=== PATIENT | male | born 1960 | race Caucasian/White ===

== ENCOUNTER 2018-09-04 13:29 | Outpatient (REF) | payer OTHER, SELFPAY ==
[2018-09-06 11:30] LABS: Campylobacter PCR SEE COMMENTS; Salmonella PCR SEE COMMENTS; Shiga Toxin PCR SEE COMMENTS; Shigella/Enteroinvasive Ecoli SEE COMMENTS
== END 2018-09-04 13:49 ==
LOC: LBN 13:29
PROVIDERS: PCP Nurse Practitioner; Visit Provider Nurse Practitioner
DX: R19.7 Diarrhea, unspecified (principal); R14.0 Abdominal distension (gaseous)
CPT/HCPCS: 87505; 83630; 87177; 87324

== ENCOUNTER 2019-12-12 07:08 | Outpatient (CLI) | payer OTHER, SELFPAY ==
[2019-12-12 07:31] LABS: HCT 44.7 % (40.0-50.0); HGB 14.6 g/dL (13.5-17.5); Mean Corp. HGB Concentration 32.7 g/dL (32.0-36.0); Mean Corpuscular Hemoglobin 29.7 pg (27.0-33.0); Mean Corpuscular Volume 90.9 fL (80-95); Mean Platelet Volume 10.6 fL (8.0-11.0); Platelet Count 210 x1000/uL (130-400); RBC 4.92 m/cumm (4.50-6.00); RBC Distribution Width 13.6 % (11.8-14.1); White Blood Cell Count 6.32 k/cumm (4.4-10.8)
[2019-12-12 09:43] LABS: ALT 34 U/L (16-63); AST 21 U/L (15-37); Alkaline Phosphatase 71 U/L (46-116); Anion Gap 8.5 mmol/L (3-11); BUN 17 mg/dL (7-18); Bilirubin, Total 0.8 mg/dL (0.2-1.0); CO2 27.5 mmol/L (21.0-32.0); CREATININE 1.08 mg/dL (0.70-1.30); Calcium 8.6 mg/dL (8.5-10.1); Calculated LDL 111 mg/dL (<100); Chloride 107 mmol/L (98-107); Cholesterol 173 mg/dL (<200); Glucose 86 mg/dL (74-106); HDL Cholesterol 44 mg/dL (40-60); Potassium 4.4 mmol/L (3.5-5.1); Sodium 143 mmol/L (136-145); TSH (W/Ref FT4) 4.03 uIU/mL (0.36-3.74); Total Protein 6.8 g/dL (6.4-8.2); Triglyceride 93 mg/dL (<150)
[2019-12-12 10:01] LABS: FREE T4 0.96 ng/dL (0.76-1.46)
== END 2019-12-12 07:28 ==
PROVIDERS: PCP Nurse Practitioner; Visit Provider Nurse Practitioner
DX: I34.0 Nonrheumatic mitral (valve) insufficiency (principal); R79.89 Other specified abnormal findings of blood chemistry; J45.909 Unspecified asthma, uncomplicated; Z13.220 Encounter for screening for lipoid disorders
CPT/HCPCS: 36415; 80053; 80061; 85027; 84439; 84443

== ENCOUNTER 2020-08-06 06:08 | Day surgery (SDC) | payer OTHER, SELFPAY ==
[2020-08-06 06:18] VITALS: BP 112/67; PULSE 71; RESP 16; TEMP 36.7; O2SAT 96
--- NOTE | 2020-08-06 06:41 | W.COLOREPORT ---
Date of service: 08/06/20 Time of Service: : Colonoscopy Report Date of procedure: 08/06/20 Pre-op diagnosis general: Hx of colon polyps Post-op diagnosis procedure note: same Procedure: Colonoscopy Surgeon: Em Osborne Anesthesia proc note operative: other (General/ASA 2/ Luis Hsieh, LETY) Estimated blood loss (mL): 0 Pathology: none sent Complications: None Disposition: same day Indications: The patient is here for Colonoscopy pre-op. His last screening was in 2017, which was remarkable for sessile serrated adenoma. He denies a family history of colon cancer.He has not had any bowel habit changes. -Discussed colonoscopy bowel prep as well as the procedure. Discussed possible complications of the procedure to include bleeding, pain, perforation, missed small lesion/polyp, sore throat, aspiration and adverse reaction to the medications. Questions were answered to patient?s satisfaction. No guarantees were implied or given. Prep: Miralax/Dulcolax Procedure Start Time: : Procedure End Time: :54 Retraction Time: 21 minutes Findings: Mild diverticulosis Grade 1 internal hemorrhoids Procedure Description: After informed consent was obtained the patient was taken to the procedure room and placed in a left decubitous position. Monitors were applied and a time out was done. The patients name, date of , procedure, allergies to medications and metal in their body was reviewed. The patient was then sedated. Once sedated and comfortable a rectal exam was done. External exam was normal. Internal exam revealed a normal sphincter tone and no palpable masses. The prostate felt smooth. The scope was then introduced and retro-flexed. Grade 1 internal hemorrhoids were identified. The scope was then advanced to the cecum without difficulty. The ileocecal valve and appendiceal orifice were identified. The prep was good. The scope was then slowly retracted over 21 minutes back into the rectum. There were no polyps. There was mild diverticulosis of the sigmoid colon.The scope was removed and the patient was woken up and taken back to Same day surgery in stable condition. The patient tolerated the procedure well and there were no immediate complications. Follow up: The patient should follow up in 5 years unless they develop changes in bowel habits or other new gastrointestinal complaints.
[2020-08-06] MEDS: Lactated Ringers 1,000 ML 80 ML IV (06:42)
--- NOTE | 2020-08-06 06:42 | W.PM.DSUDISC ---
Discharge Plan Disposition Patient Disposition: HOME Condition: Good Discharge Details Reason For Visit: Colonoscopy Attending Provider: Em Osborne Primary Care Provider: Karen Manuel Home Meds and New Rx's Prescriptions: Continued Serevent Diskus 50 mcg/dose blister with device 2 inh Inhalation BID Qty: 3 RF: 3 valacyclovir 1 gram tablet 1,000 mg PO DAILY Qty: 90 RF: 3 beclomethasone dipropionate 80 mcg/actuation HFA aerosol breath activated 1 inh IH BID Qty: 3 RF: 3 Discharge Instructions Instructions: Diverticulosis (DC), Hemorrhoids (DC) Additional Instructions: Findings: mild diverticulosis internal hemorrhoids Follow up: 5 years Please call if you develop: fevers >101.5 Nausea or Vomiting Abdominal pain that is not transient DAY SURGERY UNIT POST ENDOSCOPY INSTRUCTIONS 1. Because there will be medication in your system for the next 24 hours, you may feel a little sleepy. Your coordination will be affected. Therefore: a. Do not drive or operate dangerous equipment for 24 hours. b. Do not drink alcohol beverages for 24 hours (not even beer). c. Plan to go home and rest for the day. 2. Generally there are no restrictions on your activity after a day or so has gone by, but you may feel a bit fatigued for a few days. 3 After you arrive home you may have a light meal and return to a normal diet as you can tolerate it without feeling sick to your stomach. 4. After surgery, you may feel pain or discomfort. This should be only transient, but if it persists please contact your doctor. 5. If there are any questions regarding the findings of your procedure, please feel free to contact your doctor. 6. If you are unable to contact your doctor with a problem, contact the hospital at [phone]. 7. Continue all your regular medications unless directed otherwise. I understand the above instructions and have no questions. Signature of Patient or Responsible Adult Escort Date/Time Name of Responsible Adult Escort Signature of Nurse Date/Time Activity:: Activity as Tolerated Diet:: As Tolerated Discharge Orders Discharge Orders: Discharge Order (Routine); Ordered 08/06/20 Ordered By: Em Osborne
[2020-08-06 08:34] VITALS: BP 106/62; PULSE 59; RESP 18; TEMP 36.6; O2SAT 97
== END 2020-08-06 08:50 | disposition home or self-care (01) ==
PROVIDERS: PCP Nurse Practitioner; Visit Provider Surgery
PROC: 0DJD8ZZ Inspection of Lower Intestinal Tract, Via Natural or Artificial Opening Endoscopic (ICD-10-PCS; CPT 45378; principal; 2020-08-06 07:30)
DX: Z12.11 Encounter for screening for malignant neoplasm of colon (principal); Z86.010 Personal history of colon polyps; K57.30 Diverticulosis of large intestine without perforation or abscess without bleeding; K64.0 First degree hemorrhoids
CPT/HCPCS: 45378; J2001

== ENCOUNTER 2020-12-03 05:11 | Outpatient (CLI) | payer OTHER, SELFPAY ==
[2020-12-03 08:32] LABS: ALT 47 U/L (16-63); AST 23 U/L (15-37); Albumin 4.1 g/dL (3.4-5.0); Alkaline Phosphatase 64 U/L (46-116); Anion Gap 5.3 mmol/L (3-11); BUN 14 mg/dL (7-18); Bilirubin, Total 0.7 mg/dL (0.2-1.0); CO2 28.7 mmol/L (21.0-32.0); CREATININE 1.24 mg/dL (0.70-1.30); Calcium 8.9 mg/dL (8.5-10.1); Calculated LDL 129 mg/dL (<100); Chloride 106 mmol/L (98-107); Cholesterol 207 mg/dL (<200); Estimated GFR 59.47 (mL/min/1.73m2); Glucose 90 mg/dL (74-106); HDL Cholesterol 66 mg/dL (40-60); Potassium 4.3 mmol/L (3.5-5.1); Sodium 140 mmol/L (136-145); TSH (W/Ref FT4) 4.55 uIU/mL (0.36-3.74); Total Protein 7.4 g/dL (6.4-8.2); Triglyceride 63 mg/dL (<150)
== END 2020-12-03 05:31 ==
PROVIDERS: PCP Nurse Practitioner; Visit Provider Nurse Practitioner
DX: Z00.00 Encounter for general adult medical examination without abnormal findings (principal); I34.0 Nonrheumatic mitral (valve) insufficiency; R79.89 Other specified abnormal findings of blood chemistry
CPT/HCPCS: 36415; 80053; 80061; 84439; 84443

== ENCOUNTER 2021-09-18 00:34 | Outpatient (CLI) | payer OTHER, SELFPAY ==
--- NOTE | 2021-09-18 07:34 | DI.US_ITS ---
APPROVED REPORT EXAM: Comprehensive 2D, Doppler, and color-flow Echocardiogram Patient Location: Out-Patient [employer] Administrator: Riri Mancilla RDCS (AE) Indications: Mitral valve regurgitation, Atrial enlargement Other Information Study Quality: Good Conclusion Normal left ventricular wall thickness and chamber size. Estimated ejection fraction is 60 to 65%. Wall motion is normal Normal right ventricular size and systolic function Both atria are normal in size Trileaflet aortic valve without stenosis or regurgitation Normal mitral valve with mild regurgitation Normal tricuspid valve with trace regurgitation. Estimated right ventricular systolic pressure is no rmal at 26 mmHg Wall motion Left Ventricle The left ventricle is normal size. The left ventricular systolic function is normal. The left ventric ular ejection fraction is within the normal range. There is normal left ventricular wall thickness. T here is normal LV segmental wall motion. There is no ventricular septal defect visualized. LVEF is 60 -65%. Right Ventricle The right ventricle is normal size. The right ventricular systolic function is normal. The RVSP is 26 .5 mmHg. Atria The left atrium size is normal. The right atrium size is normal. The interatrial septum is intact wit h no evidence for an atrial septal defect. Aortic Valve The aortic valve is normal in structure. Aortic valve is trileaflet. There is no aortic valvular sten osis. No aortic regurgitation is present. Mitral Valve The mitral valve is normal in structure. No evidence of mitral valve stenosis. Mild mitral regurgitat ion. Tricuspid Valve The tricuspid valve is normal in structure. There is no tricuspid valve stenosis. Trace tricuspid reg urgitation. Pulmonic Valve The pulmonary valve is normal in structure. There is no pulmonic valvular stenosis. Trace pulmonic re gurgitation. Great Vessels The aortic root is normal in size. The ascending aorta is normal in size. Aortic arch is normal in ca liber. IVC is normal in size and collapses >50% with inspiration. Pericardium There is no pericardial effusion. 2D Dimensions IVSD d PLAX 0.98 cm M: 0.6-1.2 LV Vol A2C d MOD 103.0 mL LVPW d PLAX 0.98 cm M: 0.6 - 1.2 LV Vol A4C d MOD 170.7 mL LVID d PLAX 4.70 cm M: 4.2 - 5.8 LA vol/ BSA A2C s A-L 20.5 mL/m2 LVDs 3.20 cm M: 2.5 - 4.0 LA vol/ BSA A4C s A-L 28.1 mL/m2 Ao Root d 3.03 cm M: 3.1 - 3.7 LA Vol/ BSA Biplane s A-L 24.4 mL/m2 RA Area A4C 16.21 cm2 LA Area A4C s MOD 20.18 cm2 RA Vol/ BSA A4C s A-L 18.0 mL/m2 LA Area A2C s MOD 16.94 cm2 Ao Asc Diam d 3.27 cm M: 2.6 - 3.4 LV EF A4C MOD 60.0 % LV EF Teichholz 58.9 % LV EF A2C MOD 60.4 % LVEF (Pham's) 60.81 % M: 52 - 72 LV EF Biplane MOD 60.8 % LV Volume 97.71 mL M: 62 - 150 SV 82.10 mL LV Volume Index 43.81 mL/m2 M: 34 - 74 SV Index 36.73 mL/m2 LV Vol Biplane MOD 135.0 mL FS 31.10 % LV Diastology E/A Ratio 1.3 MV E Vmax 0.73 (0.4-1.3 m/s) MV A Vmax 0.55 (0.4-1.3 m/s) MV E/A Ratio 1.23 Aortic Valve LVOT Area 4.01 cm2 AoV Area Vmax 3.04 cm2 LVOT Vmax 0.93 m/s AoV Area/ BSA (Vmax) 1.36 cm2/m2 LVOT Mean Vidal. 0.55 m/s KIRIT Mean Vidal. 2.88 cm2 LVOT Peak Grad 3.5 mmHg KIRIT Mean Vidal. Index 1.29 cm2/m2 LVOT Mean Grad 1.5 mmHg LVOT VTI 0.227 m LVOT Diam s 2.25 cm AoV Vmax 1.23 m/s Velocity Ratio 0.75 AoV Mean Vidal. 0.77 m/s AoV Peak Grad 6.0 mmHg LVOT SV 90.96 mL AoV Mean Grad 2.7 mmHg AoV VTI 0.255 m AoV Area VTI 3.57 cm2 AoV Area/ BSA (VTI) 1.60 cm/m2 Mitral Valve MV DT 224 (160-240 msec) MR Vmax 4.18 m/s MV PHT 65 msec MR VTI 1.451 m MV Area PHT 3.39 cm2 MR Peak Grad 69.9 mmHg MV VTI 0.303 m MR Mean Grad 48.4 mmHg MV VTI Annulus 0.292 m MV Area VTI 2.89 (4.0-6.0 cm2) Pulmonary Valve PV Vmax 0.85 (0.5-1.5 m/s) RVOT Peak Gr. 1.25 mmHg PV Peak Grad 2.9 mmHg RVOT Mean Gr. 0.65 mmHg PV Mean Grad 1.6 mmHg RVOT VTI 0.157 m PV VTI 0.209 m RVOT Vmax 0.56 m/s Tricuspid Valve TR Peak Grad 23.5 mmHg TR Vmax 2.43 m/s RA Pressure 3.00 mmHg RVSP (TR) 26.5 mmHg
== END 2021-09-18 00:54 ==
PROVIDERS: PCP Nurse Practitioner; Visit Provider Nurse Practitioner
DX: I34.0 Nonrheumatic mitral (valve) insufficiency (principal); I51.7 Cardiomegaly
CPT/HCPCS: 93306

== ENCOUNTER 2021-10-01 08:39 | Inpatient (IN) | payer OTHER, SELFPAY ==
[2021-10-01] VITALS (30 sets, daily range): BP systolic 122–160; BP diastolic 56–89; PULSE 44–76; RESP 10–20; TEMP 36.4–36.9; O2SAT 96–99
--- NOTE | 2021-10-01 08:30 | RT.EKG_ITS ---
APPROVED REPORT Exam: Resting ECG Reason for Exam: chest pain Patient Location: E HR:56 bpm ECG Measurements Heart Rate 56 AXIS [place] 200 P 54 QRSd 95 QRS 34 QT 432 T 32 QTc 416 Conclusion Sinus bradycardia...rate< 60. Sinus. No STEMI. I have reviewed and interpreted ECG and agree with software generated interpretation.
--- NOTE | 2021-10-01 08:43 | W.ED.GENAD ---
Discharge Plan Disposition Patient Disposition: [facility] INPATIENT Condition: Stable Discharge Details Clinical Impression: NSTEMI (non-ST elevated myocardial infarction) Admit Date/Time: 10/01/21 12:38 Admit Provider: Jalil Lopez Attending Provider: Jalil Lopez Primary Care Provider: Karen Manuel ED Provider: Anna Marie Gomez Discharge Data Discharge Date/Time-TO BE ENTERED AT DEPARTURE: 10/01/21 14:01 Medical Decision Making 0850 -- 60-year-old male with a history of asthma presents for intermittent chest pain with exertion over the past 5 days. Pt took 2 full aspirin at home this morning. EKG on arrival notes a rate of 56, sinus, no STEMI nondiagnostic. Blood pressure initially 160s, now 130s. Remainder vitals within normal limits. He appears comfortable and not. He initially was pain-free and then complained of mild chest pressure during my evaluation. Due to multiple episodes of pressure-like pain with exertion in association with fatigue and nausea, this is concerning for ACS. Will obtain screening labs as well as CT chest due to radiation of pain to neck. Will give nitro x3 as needed. We will also plan for admission for chest pain rule out ACS. 0930 -- Labs reviewed. White blood cell count 6. Normal coagulation studies. Troponin 0.07. Case discussed with [facility] [place] cardiology- agree history is concerning for unstable angina. There are no beds available but can list pt for acceptance tomorrow. Accepting physician Dr. Matamoros. If CT negative, recommend 300 mg Plavix, heparin bolus and drip, metoprolol 12.5 mg every 6 hours, and starting a statin. Also recommend obtaining an echo while here if possible. 1045 -- CT scan negative. Patient reassessed and he is pain-free. Will start heparin bolus/gtt and give plavix. Discussed with [facility] and they have no capacity to accept patient today. We will plan for admission here if patient remains stable with plan for transfer to [facility] [place] tomorrow. 1215 -- Repeat troponin minimally increased to 0.08. Repeat EKG unchanged. Patient remains hemodynamically stable. Case discussed with hospitalist who accepts patient for admission. Medical Records Medical records reviewed: Yes I reviewed the patient's medical records. Imaging Data Radiologic Study: Radiologist's impression: CT THORAX CTA CLINICAL HISTORY: substernal/R sided chest pain. TECHNIQUE: Imaging Protocol: Axial CT angiography was performed with multi-slice acquisition and multi-planar and/or 3D reconstructions. CONTRAST MATERIAL: Intravenous: Omnipaque 350 Contrast volume:structured data in ml COMPARISON: No exams were available for comparison FINDINGS: CT angiography of the chest was performed with intravenous infusion of 100 cc of Omnipaque 350. The lungs are clear. No pleural effusion. Tracheobronchial tree appears intact. No evidence of pulmonary embolic disease. Thoracic aorta is of normal diameter, no thoracic aortic aneurysm or dissection, major branch vessels appear intact. No mediastinal or hilar adenopathy. Images obtained through the upper abdomen show unremarkable appearance of the visualized portions of the liver, spleen, pancreas, adrenals, and kidneys. IMPRESSION: Negative CT angiogram of the chest. No evidence of pulmonary embolic disease. Lab Data Lab results reviewed: Yes I reviewed the patient's lab results. Labs: Laboratory Tests Range/Units 10/01/21 10/01/21 10/01/21 08:55 08:55 10:05 WBC (4.4-10.8) 10^3/uL 6.53 RBC (4.36-5.78) 10^6/uL 4.73 Hgb (13.5-17.5) g/dL 14.1 Hct (40.0-50.0) % 42.7 MCV (80-95) fL 90.3 MCH (27.0-33.0) pg 29.8 MCHC (32.0-36.0) % 33.0 RDW (11.8-14.1) % 12.4 Plt Count (130-400) 10^3/uL 188 MPV (8.0-11.0) fL 11.6 H Immature Gran % 0.0 Neutrophils % 49.3 Lymphocytes % 36.3 Monocytes % 10.1 Eosinophils % 3.8 Basophils % 0.5 Nucleated RBC % % 0 Absolute Neutrophils (1.2-6.7) 10^3/uL 3.22 Absolute Lymphocytes (1.2-3.4) 10^3/uL 2.37 Absolute Monocytes (0.1-0.8) 10^3/uL 0.66 Absolute Eosinophils (0.0-0.7) 10^3/uL 0.25 Absolute Basophils (0.0-0.2) 10^3/uL 0.03 PT (9.3-11.0) sec 10.4 INR (0.9-1.1) 1.0 APTT (21.0-27.5) sec 24.7 Sodium (136-145) mmol/L 141 Potassium (3.5-5.1) mmol/L 4.2 Chloride (98-107) mmol/L 106 Carbon Dioxide (21.0-32.0) mmol/L 27.2 Anion Gap (3-11) mmol/L 7.8 BUN (7-18) mg/dL 13 Creatinine (0.70-1.30) mg/dL 1.1 Estimated GFR/1.73 m2 (mL/min/1.73m2) >= 60.00 Glucose (74-106) mg/dL 110 H Calcium (8.5-10.1) mg/dL 8.8 Magnesium (1.8-2.4) mg/dL 1.9 Total Bilirubin (0.2-1.0) mg/dL 0.9 AST (15-37) U/L 23 ALT (16-63) U/L 32 Alkaline Phosphatase (46-116) U/L 56 Troponin I (<0.06) ng/mL 0.07 H Total Protein (6.4-8.2) g/dL 7.0 Albumin (3.4-5.0) g/dL 3.9 COVID-19 Source Range/Units 10/01/21 10/01/21 10:30 11:45 WBC (4.4-10.8) 10^3/uL RBC (4.36-5.78) 10^6/uL Hgb (13.5-17.5) g/dL Hct (40.0-50.0) % MCV (80-95) fL MCH (27.0-33.0) pg MCHC (32.0-36.0) % RDW (11.8-14.1) % Plt Count (130-400) 10^3/uL MPV (8.0-11.0) fL Immature Gran % Neutrophils % Lymphocytes % Monocytes % Eosinophils % Basophils % Nucleated RBC % % Absolute Neutrophils (1.2-6.7) 10^3/uL Absolute Lymphocytes (1.2-3.4) 10^3/uL Absolute Monocytes (0.1-0.8) 10^3/uL Absolute Eosinophils (0.0-0.7) 10^3/uL Absolute Basophils (0.0-0.2) 10^3/uL PT (9.3-11.0) sec INR (0.9-1.1) APTT (21.0-27.5) sec Sodium (136-145) mmol/L Potassium (3.5-5.1) mmol/L Chloride (98-107) mmol/L Carbon Dioxide (21.0-32.0) mmol/L Anion Gap (3-11) mmol/L BUN (7-18) mg/dL Creatinine (0.70-1.30) mg/dL Estimated GFR/1.73 m2 (mL/min/1.73m2) Glucose (74-106) mg/dL Calcium (8.5-10.1) mg/dL Magnesium (1.8-2.4) mg/dL Total Bilirubin (0.2-1.0) mg/dL AST (15-37) U/L ALT (16-63) U/L Alkaline Phosphatase (46-116) U/L Troponin I (<0.06) ng/mL 0.08 H* Total Protein (6.4-8.2) g/dL Albumin (3.4-5.0) g/dL COVID-19 Source Nasal/Nares ECG Data Attestation: I personally reviewed and interpreted this ECG (s) as follows: Interpretation: #1 -- rate of 56, sinus, no acute ST elevation or depression. RI 200. QRS 95. QTc 416. #2 -- rate of 47, sinus, no acute ST elevation or depression. RI 203. QRS 93. QTc 396. HPI General Mode of arrival: ambulatory. Date/Time Provider Initiated Documentation: 10/01/21 08:40. Limitations to Documentation: no limitations. Information obtained by: patient. HPI Narrative: Patient is a 60-year-old male with a history of asthma who presents to the ED with intermittent episodes of chest pain mostly with exertion over the past 5 days. Patient states his first episode occurred 5 days ago while on the elliptical at the gym. He described it as pressure-like, substernal and right-sided with radiation to his neck. Patient states he had several more episodes occurring over the past 5 days, over the weekend while walking up a hill, also while walking around at home and at work this morning. He does admit to some mild pain here now in the ED. He states he has had fatigue and nausea during the episodes of pain. He denies any specific shortness of breath or dizziness. He states he took Motrin and 2 full aspirins when he presented without relief. Related Data Home Medications Medication Instructions Recorded Confirmed valacyclovir 1 gram tablet 1,000 mg PO DAILY #90 tab 12/07/19 10/01/21 albuterol sulfate 90 mcg/actuation 2 inh INHALATION Q4H PRN #1 ea 11/28/20 10/01/21 breath activated powder inhaler beclomethasone dipropionate 80 1 inh IH BID #1 unit 11/28/20 10/01/21 mcg/actuation HFA breath activated aerosol salmeterol 50 mcg/dose blister 2 inh INHALATION BID #3 disk 11/28/20 10/01/21 powder for inhalation Previous Rx's Medication Instructions Recorded valacyclovir 1 gram tablet 1,000 mg PO DAILY #90 tab 12/07/19 albuterol sulfate 90 mcg/actuation 2 inh INHALATION Q4H PRN #1 ea 11/28/20 breath activated powder inhaler beclomethasone dipropionate 80 1 inh IH BID #1 unit 11/28/20 mcg/actuation HFA breath activated aerosol salmeterol 50 mcg/dose blister 2 inh INHALATION BID #3 disk 11/28/20 powder for inhalation Allergies Allergy/AdvReac Type Severity Reaction Status Date / Time bupropion AdvReac Unknown jittery Verified 10/01/21 08:48 cats Allergy Uncoded 10/01/21 08:48 Review of Systems All systems reviewed & are unremarkable except as noted in HPI and below Constitutional Constitutional: Reports as per HPI, Denies chills, Reports fatigue and Denies fever(s) Eyes Eyes: Denies blurry vision ENT Ears, Nose, Mouth, and Throat: Denies dizziness, Denies sore throat and Denies throat swelling Cardiovascular Cardiovascular: Reports chest pain and Denies dyspnea Respiratory Respiratory: Denies cough and Denies dyspnea Gastrointestinal Gastrointestinal: Denies abdominal pain, Denies diarrhea, Reports nausea and Denies vomiting Genitourinary Genitourinary: Denies hematuria and Denies dysuria Musculoskeletal Musculoskeletal: Denies back pain and Denies numbness Integumentary/Breasts Skin/Breast: Denies lesions and Denies rash Neurologic Neurologic: Denies dizziness, Denies localized weakness and Denies numbness Endocrine Endocrine: Reports fatigue Allergic/Immunologic Allergic/Immunologic: Denies throat swelling [facility] Active Problem List (Updated 10/01/21 @ 16:37 by Sena Herbert NP) Discharge planning issues (Acute) NSTEMI (non-ST elevated myocardial infarction) (Acute) Seborrhea oleosa (Acute) Dry skin (Acute) Routine medical exam (Acute) Abnormal TSH (Acute) Routine general medical examination at a health care facility (Acute) Normal colonoscopy (Acute) Extrinsic asthma, unspecified (Acute 11/17/11) Benign neoplasm of colon (Acute 11/17/11) Herpes simplex with unspecified ophthalmic complication (Acute 11/17/11) Lumbago (Acute 10/03/13) Mitral valve regurgitation (Acute 12/23/13) Sciatica (Acute 07/02/12) Serrated adenoma of colon (Acute 08/31/17) Seborrheic keratoses (Acute) Medical History (Updated 10/01/21 @ 16:37 by Sena Herbert NP) Asthma Mitral valve regurgitation F/U with PCP, pt. states he has had no issues with this Sciatica Surgical History Colonoscopy - [facility] (08/31/17) Family History Mother , heart disease at age 69. No problems noted. Father , lung cancer at age 59. No problems noted. Social History (Updated 11/28/20 @ 08:53 by Michelle Woods RN) Smoking/Tobacco Use Status: Former Tobacco Use Quit Date: 11/09/79 Smokeless tobacco user: chewing tobacco (quit 11/09/20) Smoking risk assessment performed?: Yes Alcohol Intake: current Alcohol Intake frequency: holidays/special occasions only Drug use: Never Substance use type: does not use Adopted: No Caregiver/Support person: No Household members: spouse Housing: apartment Number of Children: 0 Communication Needs: None Do you need help understanding health information?: Never Pets and animals: No Sexually active: Yes Do you think of yourself as: straight/heterosexual Current gender identity: male What is your relationship status?: How often do you talk on the phone with friends or family?: once per week How often do you get together with friends or relatives?: once per week How often do you attend faith or buddhist services?: decline to answer Do you belong to any clubs or organized social groups?: no Panel score (0-1 are the most socially isolated patients): 1 What type of physical activity do you participate in: none Brit/Mosque: None Special brit needs: No Seatbelt use: always Helmet use: No Drive intox or ride w/intox limo driver: No Do you feel safe at home: Yes Do you feel safe in your relationship?: Yes Exam Const General: cooperative and no acute distress HENMT Head: normal to inspection Face and sinus: normal facial exam Eyes General: appearance normal, both eyes and all related structures EOM: EOM intact bilaterally Neck Neck: normal visual inspection and No submandibular swelling Lymphatic: no lymphadenopathy noted Chest Chest: normal inspection of the chest and no tenderness Resp Effort & Inspection: normal respiratory effort and able to speak in complete sentences Auscultation: clear to auscultation bilaterally Cardio Rate: regular rate Rhythm: regular rhythm GI Inspection: normal to inspection Palpation: soft, not firm, not rigid and nontender Auscultation: normal bowel sounds Skin General skin exam: no rashes or lesions noted Neuro General: patient alert, patient awake and patient oriented x3 Cognition: normal cognition Speech: speech normal Motor: muscle tone normal throughout Sensory Exam: no sensory deficits noted Extrem General: normal to inspection, full ROM, capillary refill normal, no calf tenderness bilaterally and no edema Psych Appearance: grossly normal Mental Status: mental status grossly normal Speech and Movement: speech and movement normal Affect: normal affect Critical Care Time Critical Care Time Critical Care Time: Yes Total Critical Care Time: 30 Attestation: I spent 30 minutes of critical care time with this patient. This does not include time spent on separately reported billable procedures.
[2021-10-01 09:24] LABS: Absolute Basophil Count 0.03 10^3/uL (0.0-0.2); Absolute Eosinophil Count 0.25 10^3/uL (0.0-0.7); Absolute Lymphocyte Count 2.37 10^3/uL (1.2-3.4); Absolute Monocyte Count 0.66 10^3/uL (0.1-0.8); Absolute Neutrophil Count 3.22 10^3/uL (1.2-6.7); Basophils % 0.5; Eosinophils % 3.8; HCT 42.7 % (40.0-50.0); Lymphocytes % 36.3; MCH 29.8 pg (27.0-33.0); MCV 90.3 fL (80-95); MPV 11.6 fL (8.0-11.0); Monocytes % 10.1; Neutrophils % 49.3; Nucleated RBC 0 %; Platelet Count 188 10^3/uL (130-400); RBC 4.73 10^6/uL (4.36-5.78); RDW 12.4 % (11.8-14.1); RDW-SD 41.3 fL; WBC 6.53 10^3/uL (4.4-10.8)
[2021-10-01 09:25] LABS: HGB 14.1 g/dL (13.5-17.5)
[2021-10-01] MEDS: Normal Saline 1,000 ML 1000 ML IV (09:40)
[2021-10-01] MEDS: nitroGLYcerin 0.4 MG TAB SL (09:40)
[2021-10-01 09:44] LABS: ALT 32 U/L (16-63); AST 23 U/L (15-37); Albumin 3.9 g/dL (3.4-5.0); Alkaline Phosphatase 56 U/L (46-116); Anion Gap 7.8 mmol/L (3-11); BUN 13 mg/dL (7-18); Bilirubin, Total 0.9 mg/dL (0.2-1.0); CO2 27.2 mmol/L (21.0-32.0); CREATININE 1.1 mg/dL (0.70-1.30); Calcium 8.8 mg/dL (8.5-10.1); Chloride 106 mmol/L (98-107); Glucose 110 mg/dL (74-106); Magnesium 1.9 mg/dL (1.8-2.4); Potassium 4.2 mmol/L (3.5-5.1); Sodium 141 mmol/L (136-145)
[2021-10-01 09:47] LABS: Troponin I 0.07 ng/mL (<0.06)
[2021-10-01] MEDS: Normal Saline - Diluent 50 ML VIAL IV (10:13)
[2021-10-01] MEDS: Omnipaque 350 MG/ML 100 ML BTL IJ (10:18)
--- NOTE | 2021-10-01 10:19 | DI.CT_ITS ---
Exam(s) CT THORAX CTA EXAM: CT THORAX CTA CLINICAL HISTORY: substernal/R sided chest pain. TECHNIQUE: Imaging Protocol: Axial CT angiography was performed with multi-slice acquisition and mu lti-planar and/or 3D reconstructions. CONTRAST MATERIAL: Intravenous: Omnipaque 350 Contrast volume:structured data in ml COMPARISON: No exams were available for comparison FINDINGS: CT angiography of the chest was performed with intravenous infusion of 100 cc of Omnipaque 350. The lungs are clear. No pleural effusion. Tracheobronchial tree appears intact. No evidence of pulmonary embolic disease. Thoracic aorta is of normal diameter, no thoracic aortic an eurysm or dissection, major branch vessels appear intact. No mediastinal or hilar adenopathy. Images obtained through the upper abdomen show unremarkable appearance of the visualized portions of the liver, spleen, pancreas, adrenals, and kidneys. IMPRESSION: Negative CT angiogram of the chest. No evidence of pulmonary embolic disease. RADIATION DOSE DELIVERED: 657.22mGy.cm Total DLP 657.22mGy.cm Total DLP CTDIvol DATA REPOSITORY: All CT scans at this facility are submitted to the National Radiology Data Registry (NRDR) Dose Index Registry (DIR) with the [employer] [place] [employer] ([employer]). RADIATION OPTIMIZATION: All CT scans at this facility use at least one of these dose optimization te chniques: automated exposure control; mA and/or kV adjustment per patient size (includes targeted exa ms where dose is matched to clinical indication); or iterative reconstruction.
[2021-10-01 10:31] LABS: PTT Activated 24.7 sec (21.0-27.5); Prothrombin Time 10.4 sec (9.3-11.0)
[2021-10-01 10:35] LABS: Source Nasal/Nares
[2021-10-01] MEDS: Clopidogrel 300 MG TAB PO (11:04)
--- NOTE | 2021-10-01 12:00 | RT.EKG_ITS ---
APPROVED REPORT Exam: Resting ECG Reason for Exam: chest pain Patient Location: E HR:47 bpm ECG Measurements Heart Rate 47 AXIS [place] 203 P 49 QRSd 93 QRS 32 QT 447 T 42 QTc 396 Conclusion Sinus bradycardia...rate< 60. Sinus. No STEMI. I have reviewed and interpreted ECG and agree with software generated interpretation.
[2021-10-01 12:15] LABS: Troponin I 0.08 ng/mL (<0.06)
--- NOTE | 2021-10-01 14:18 | W.PM.HP.N ---
Date of service: 10/01/21 Time of Service: 14:18 Assessment and Plan Assessment and plan (1) NSTEMI (non-ST elevated myocardial infarction): Status: Acute Assessment and plan: [place] [facility] [place] Venegas likely tomorrow. continue heparin drip, received asa, plavix load in ED has been pain free since arrival. 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 limited echo when available. cycle troponins echo from 09/19/21: Indications: Mitral valve regurgitation, Atrial enlargement Other Information Study Quality: Good Conclusion Normal left ventricular wall thickness and chamber size. Estimated ejection fraction is 60 to 65%. Wall motion is normal Normal right ventricular size and systolic function Both atria are normal in size Trileaflet aortic valve without stenosis or regurgitation Normal mitral valve with mild regurgitation Normal tricuspid valve with trace regurgitation. Estimated right ventricular systolic pressure is normal at 26 mmHg (2) Herpes simplex with unspecified ophthalmic complication: Status: Acute Assessment and plan: continue daily valtrex (3) Discharge planning issues: Status: Acute Assessment and plan: [place] [facility] [place] under cardiology DR Venegas. will transfer by ground EMS when bed available. anticipate tomorrow. discussed with Dr Lopez. History of Present Illness History of Present Illness Chief Complaint: chest pain Narrative: Patient is a 60-year-old male with a history of asthma who presents to the ED with intermittent episodes of chest pain mostly with exertion over the past 5 days. Patient states his first episode occurred 5 days ago while on the elliptical at the gym. He described it as pressure-like, substernal and right-sided with radiation to his neck. Patient states he had several more episodes occurring over the past 5 days, over the weekend while walking up a hill, also while walking around at home and at work this morning. He does admit to some mild pain here now in the ED. He states he has had fatigue and nausea during the episodes of pain. He denies any specific shortness of breath or dizziness. He states he took Motrin and 2 full aspirins when he presented without relief. Review of Systems All systems reviewed & are unremarkable except as noted in HPI and below [facility] Active Problem List (Updated 10/01/21 @ 16:37 by Sena Herbert NP) Discharge planning issues (Acute) NSTEMI (non-ST elevated myocardial infarction) (Acute) Seborrhea oleosa (Acute) Dry skin (Acute) Routine medical exam (Acute) Abnormal TSH (Acute) Routine general medical examination at a health care facility (Acute) Normal colonoscopy (Acute) Extrinsic asthma, unspecified (Acute 11/17/11) Benign neoplasm of colon (Acute 11/17/11) Herpes simplex with unspecified ophthalmic complication (Acute 11/17/11) Lumbago (Acute 10/03/13) Mitral valve regurgitation (Acute 12/23/13) Sciatica (Acute 07/02/12) Serrated adenoma of colon (Acute 08/31/17) Seborrheic keratoses (Acute) Medical History (Updated 10/01/21 @ 16:37 by Sena Herbert NP) Asthma Mitral valve regurgitation F/U with PCP, pt. states he has had no issues with this Sciatica Surgical History Colonoscopy - [facility] (08/31/17) Family History Mother , heart disease at age 69. No problems noted. Father , lung cancer at age 59. No problems noted. Social History (Updated 11/28/20 @ 08:53 by Michelle Woods RN) Smoking/Tobacco Use Status: Former Tobacco Use Quit Date: 11/09/79 Smokeless tobacco user: chewing tobacco (quit 11/09/20) Smoking risk assessment performed?: Yes Alcohol Intake: current Alcohol Intake frequency: holidays/special occasions only Drug use: Never Substance use type: does not use Adopted: No Caregiver/Support person: No Household members: spouse Housing: apartment Number of Children: 0 Communication Needs: None Do you need help understanding health information?: Never Pets and animals: No Sexually active: Yes Do you think of yourself as: straight/heterosexual Current gender identity: male What is your relationship status?: How often do you talk on the phone with friends or family?: once per week How often do you get together with friends or relatives?: once per week How often do you attend orthodox or caodaism services?: decline to answer Do you belong to any clubs or organized social groups?: no Panel score (0-1 are the most socially isolated patients): 1 What type of physical activity do you participate in: none Brit/Christian: None Special brit needs: No Seatbelt use: always Helmet use: No Drive 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 or 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 Do you feel safe at home: Yes Do you feel safe in your relationship?: Yes Meds Allergies and Home Medications Allergies Allergy/AdvReac Type Severity Reaction Status Date / Time bupropion AdvReac Unknown jittery Verified 10/01/21 08:48 cats Allergy Uncoded 10/01/21 08:48 Home Medications Medication Instructions Recorded Confirmed Type valacyclovir 1 gram tablet 1,000 mg PO DAILY #90 tab 12/07/19 10/01/21 Rx albuterol sulfate 90 mcg/actuation 2 inh INHALATION Q4H PRN #1 ea 11/28/20 10/01/21 Rx breath activated powder inhaler beclomethasone dipropionate 80 1 inh IH BID #1 unit 11/28/20 10/01/21 Rx mcg/actuation HFA breath activated aerosol salmeterol 50 mcg/dose blister 2 inh INHALATION BID #3 disk 11/28/20 10/01/21 Rx powder for inhalation Exam Const General: cooperative and no acute distress HENMT Head: normal to inspection Face and sinus: normal facial exam Eyes General: appearance normal, both eyes and all related structures Neck Neck: normal visual inspection Chest Chest: normal inspection of the chest and no tenderness Resp Effort & Inspection: normal respiratory effort and able to speak in complete sentences Auscultation: clear to auscultation bilaterally Cardio Rate: regular rate Rhythm: regular rhythm GI Inspection: normal to inspection Palpation: soft and nontender Auscultation: normal bowel sounds Skin General skin exam: no rashes or lesions noted Neuro General: patient alert, patient awake and patient oriented x3 Cognition: normal cognition Speech: speech normal Extrem General: normal to inspection, full ROM, no calf tenderness bilaterally and no edema Psych Appearance: grossly normal Mental Status: mental status grossly normal Speech and Movement: speech and movement normal Affect: normal affect Results Labs Result diagrams: 10/01/21 08:55 10/01/21 08:55 Labs: Laboratory Results - last 24 hr 10/01/21 10/01/21 10/01/21 08:55 08:55 10:05 WBC 6.53 RBC 4.73 Hgb 14.1 Hct 42.7 MCV 90.3 MCH 29.8 MCHC 33.0 RDW 12.4 Plt Count 188 MPV 11.6 H Immature Gran % 0.0 Neutrophils % 49.3 Lymphocytes % 36.3 Monocytes % 10.1 Eosinophils % 3.8 Basophils % 0.5 Nucleated RBC % 0 Absolute Neutrophils 3.22 Absolute Lymphocytes 2.37 Absolute Monocytes 0.66 Absolute Eosinophils 0.25 Absolute Basophils 0.03 PT 10.4 INR 1.0 APTT 24.7 Sodium 141 Potassium 4.2 Chloride 106 Carbon Dioxide 27.2 Anion Gap 7.8 BUN 13 Creatinine 1.1 Estimated GFR/1.73 m2 >= 60.00 Glucose 110 H Calcium 8.8 Magnesium 1.9 Total Bilirubin 0.9 AST 23 ALT 32 Alkaline Phosphatase 56 Troponin I 0.07 H Total Protein 7.0 Albumin 3.9 COVID-19 Source 10/01/21 10/01/21 10:30 11:45 WBC RBC Hgb Hct MCV MCH MCHC RDW Plt Count MPV Immature Gran % Neutrophils % Lymphocytes % Monocytes % Eosinophils % Basophils % Nucleated RBC % Absolute Neutrophils Absolute Lymphocytes Absolute Monocytes Absolute Eosinophils Absolute Basophils PT INR APTT Sodium Potassium Chloride Carbon Dioxide Anion Gap BUN Creatinine Estimated GFR/1.73 m2 Glucose Calcium Magnesium Total Bilirubin AST ALT Alkaline Phosphatase Troponin I 0.08 H* Total Protein Albumin COVID-19 Source Nasal/Nares Last Vital Signs Temp 36.9 C 10/01/21 09:45 Pulse 49 L 10/01/21 10:00 Resp 17 10/01/21 10:50 BP 129/66 10/01/21 10:00 Pulse Ox 99 10/01/21 10:50
[2021-10-01 16:30] LABS: COVID-19 PCR Negative (Negative)
[2021-10-01 18:03] LABS: Troponin I 0.08 ng/mL (<0.06)
[2021-10-01 18:16] LABS: PTT Activated 40.8 sec (21.0-27.5)
[2021-10-01] MEDS: Atorvastatin 40 MG TAB 80 MG PO (19:53)
[2021-10-02 03:18] VITALS: BP 145/78; PULSE 50; RESP 18; TEMP 36.5; O2SAT 97
[2021-10-02 06:59] VITALS: PULSE 49
[2021-10-02 07:00] VITALS: PULSE 68
[2021-10-02] MEDS: Aspirin E.C. 81 MG TABEC PO (07:34)
[2021-10-02] MEDS: Clopidogrel 75 MG TAB PO (07:34)
[2021-10-02 07:38] LABS: Abs Immature Grans 0.02 10^3/uL (0.0-0.06); Absolute Basophil Count 0.06 10^3/uL (0.0-0.2); Absolute Eosinophil Count 0.29 10^3/uL (0.0-0.7); Absolute Lymphocyte Count 2.64 10^3/uL (1.2-3.4); Absolute Monocyte Count 0.64 10^3/uL (0.1-0.8); Absolute Neutrophil Count 3.54 10^3/uL (1.2-6.7); Basophils % 0.8; HCT 45.4 % (40.0-50.0); HGB 14.9 g/dL (13.5-17.5); Immature Grans % 0.3; Lymphocytes % 36.7; MCH 29.8 pg (27.0-33.0); MCHC 32.8 % (32.0-36.0); MCV 90.8 fL (80-95); MPV 11.4 fL (8.0-11.0); Monocytes % 8.9; Neutrophils % 49.3; Nucleated RBC 0 %; Platelet Count 188 10^3/uL (130-400); RDW 12.7 % (11.8-14.1); RDW-SD 41.8 fL; WBC 7.19 10^3/uL (4.4-10.8)
[2021-10-02 07:52] LABS: PTT Activated 40.7 sec (21.0-27.5)
[2021-10-02 07:58] LABS: Anion Gap 9.3 mmol/L (3-11); BUN 12 mg/dL (7-18); CO2 27.7 mmol/L (21.0-32.0); CREATININE 1.1 mg/dL (0.70-1.30); Calcium 8.7 mg/dL (8.5-10.1); Chloride 105 mmol/L (98-107); Glucose 105 mg/dL (74-106); Potassium 3.8 mmol/L (3.5-5.1); Sodium 142 mmol/L (136-145); Troponin I < 0.05 ng/mL (<0.06)
[2021-10-02 07:59] VITALS: BP 116/68; PULSE 63; RESP 16; TEMP 36.5; O2SAT 98
[2021-10-02 10:56] VITALS: BP 114/67; PULSE 55; RESP 16; TEMP 36.4; O2SAT 98
--- NOTE | 2021-10-02 11:19 | DSE_ITS ---
Date of service: 10/02/21 Time of Service: 11:19 DS: Diagnosis Discharge Diagnosis (1) NSTEMI (non-ST elevated myocardial infarction): Status: Acute (2) Herpes simplex with unspecified ophthalmic complication: Status: Acute Discharge Plan Disposition Condition: Stable Discharge Details Reason For Visit: NSTEMI Admit Date/Time: 10/02/21 11:13 Admit Provider: Jalil Lopez Attending Provider: Jalil Lopez Primary Care Provider: Karen Manuel Hospital Course Hospital Course: This is a 60-year-old male with a history of asthma who presents to the ED with intermittent episodes of chest pain mostly with exertion over the past 5 days. Patient states his first episode occurred 5 days ago while on the elliptical at the gym. He described it as pressure-like, substernal and right-sided with radiation to his neck. He had another episode over the weekend while walking up a hill, also while walking around at home and at work on the day of presentation. He underwent routine cardiac evaluation in the ED. EKG showed no acute ST segment changes. His troponin was elevated at 0.07. He had taken 2 full dose aspirin, in addition to ibuprofen prior to arrival. He was given plavix load of 300 mg and started on a heparin drip. His case was discussed with cardiology at [facility] [place], Dr Venegas who also recommended started a beta carmen. His heart rate has been in the 40-50's so was not initiated. He has remained chest pain free on this admission, sinus pop on telemetry. His troponin pe aked at 0.08 and normalized overnight. He has been awaiting transfer to [facility] [place] for further cardiac evaluation. His limited echo today is unchanged from formal echo 2 weeks ago. images have been pushed to [facility] [place] for review. He is being transported by ground EMS in stable condition. Discussed with DR Lopez. Home Meds and New Rx's Prescriptions: New atorvastatin 40 mg Tablet 80 mg PO QPM Qty: 60 RF: 0 clopidogrel 75 mg Tablet 75 mg PO DAILY Qty: 30 RF: 0 aspirin 81 mg Tablet,Delayed Release (Dr/Ec) 81 mg PO DAILY Qty: 30 RF: 0 Continued beclomethasone dipropionate 80 mcg/actuation HFA aerosol breath activated 1 inh IH BID Qty: 1 RF: 12 Serevent Diskus 50 mcg/dose blister with device 2 inh Inhalation BID Qty: 3 RF: 3 albuterol sulfate 90 mcg/actuation aerosol powdr breath activated 2 inh inhalation Q4H PRN (Reason: shortness of breath or wheezing) Qty: 1 RF: 12 Discontinued valacyclovir 1 gram tablet 1,000 mg PO DAILY Qty: 90 RF: 3 Discharge Instructions Instructions: Heart Attack (DC) Stand Alone Forms: Nursing Discharge Form Activity:: Activity as Tolerated Equipment/Supplies:: No Equipment Needed Diet:: NPO for transport DS: Summary Time Spent with Patient providing and/or coordinating discharge services: Greater than 30 minutes Status at Discharge Functional status at discharge: independent ambulation Overall status at discharge: patient is not back to baseline Mental Status: mental status grossly normal Speech and Movement: speech and movement normal Mood: congruent mood Affect: normal affect Exam Const General: cooperative and no acute distress HENMT Head: normal to inspection Face and sinus: normal facial exam Eyes General: appearance normal, both eyes and all related structures Neck Neck: normal visual inspection Chest Chest: normal inspection of the chest and no tenderness Resp Effort & Inspection: normal respiratory effort and able to speak in complete sentences Auscultation: clear to auscultation bilaterally Cardio Rate: regular rate Rhythm: regular rhythm GI Inspection: normal to inspection Palpation: soft and nontender Auscultation: normal bowel sounds Skin General skin exam: no rashes or lesions noted Neuro General: patient alert, patient awake and patient oriented x3 Cognition: normal cognition Speech: speech normal Extrem General: normal to inspection, full ROM, no calf tenderness bilaterally and no edema Psych Appearance: grossly normal Mental Status: mental status grossly normal Speech and Movement: speech and movement normal Mood: congruent mood Affect: normal affect DS: Data Vitals/I&O Vitals and I&O: Vital Signs Temperature 36.4 C L 10/02/21 10:56 Temperature Source Tympanic 10/02/21 10:56 Pulse 55 L 10/02/21 10:56 Pulse Rhythm Regular 10/02/21 09:28 Pulse 54 L 10/01/21 11:12 Respiratory Rate 16 10/02/21 10:56 Respiratory Effort Non-Labored 10/02/21 09:28 Respiratory Depth Normal 10/02/21 09:28 Respiratory Pattern Normal 10/02/21 09:28 Blood Pressure 114/67 10/02/21 10:56 Blood Pressure Mean 83 10/01/21 10:00 Pulse Oximetry 98 10/02/21 10:56 Oxygen Delivery Method Room Air 10/02/21 07:59 Oxygen Flow Rate 0 10/02/21 07:59 Pain Level 0 10/02/21 07:59 Comment 10/02/21 03:18 Intake & Output 10/01/21 10/01/21 10/02/21 11:59 23:59 11:59 Intake Total 1000 / 1210 210 / 1210 273.333 / 273.333 Output Total 250 / 1150 900 / 1150 1600 / 1600 Balance 750 / 60 -690 / 60 -1326.667 / -1326.667 Weight 106.594 kg Intake: IV 1000 / 1010 10 / 1010 223.333 / 223.333 Oral 200 / 200 50 / 50 Output: Urine 250 / 1150 900 / 1150 1600 / 1600 Other: Urine Color Yellow Yellow Urine Appearance Clear Clear Urine Odor Normal Normal Voiding Methods Urinal Urinal # Voids 1 Data Completed and Pending Labs on day of discharge: Labs from last 24 hours 10/02/21 10/02/21 10/02/21 07:08 07:08 07:08 WBC 7.19 RBC 5.00 Hgb 14.9 Hct 45.4 MCV 90.8 MCH 29.8 MCHC 32.8 RDW 12.7 Plt Count 188 MPV 11.4 H Immature Gran % 0.3 Neutrophils % 49.3 Lymphocytes % 36.7 Monocytes % 8.9 Eosinophils % 4.0 Basophils % 0.8 Nucleated RBC % 0 Absolute Neutrophils 3.54 Absolute Lymphocytes 2.64 Absolute Monocytes 0.64 Absolute Eosinophils 0.29 Absolute Basophils 0.06 APTT 40.7 H Sodium 142 Potassium 3.8 Chloride 105 Carbon Dioxide 27.7 Anion Gap 9.3 BUN 12 Creatinine 1.1 Estimated GFR/1.73 m2 >= 60.00 Glucose 105 Calcium 8.7 Troponin I < 0.05 SARS-CoV-2 (PCR) 10/01/21 10/01/21 10/01/21 17:35 17:35 11:45 WBC RBC Hgb Hct MCV MCH MCHC RDW Plt Count MPV Immature Gran % Neutrophils % Lymphocytes % Monocytes % Eosinophils % Basophils % Nucleated RBC % Absolute Neutrophils Absolute Lymphocytes Absolute Monocytes Absolute Eosinophils Absolute Basophils APTT 40.8 H D Sodium Potassium Chloride Carbon Dioxide Anion Gap BUN Creatinine Estimated GFR/1.73 m2 Glucose Calcium Troponin I 0.08 H* 0.08 H* SARS-CoV-2 (PCR) 10/01/21 10:30 WBC RBC Hgb Hct MCV MCH MCHC RDW Plt Count MPV Immature Gran % Neutrophils % Lymphocytes % Monocytes % Eosinophils % Basophils % Nucleated RBC % Absolute Neutrophils Absolute Lymphocytes Absolute Monocytes Absolute Eosinophils Absolute Basophils APTT Sodium Potassium Chloride Carbon Dioxide Anion Gap BUN Creatinine Estimated GFR/1.73 m2 Glucose Calcium Troponin I SARS-CoV-2 (PCR) Negative [facility] Active Problem List (Updated 10/01/21 @ 16:37 by Snea Herbert NP) Discharge planning issues (Acute) NSTEMI (non-ST elevated myocardial infarction) (Acute) Seborrhea oleosa (Acute) Dry skin (Acute) Routine medical exam (Acute) Abnormal TSH (Acute) Routine general medical examination at a health care facility (Acute) Normal colonoscopy (Acute) Extrinsic asthma, unspecified (Acute 11/17/11) Benign neoplasm of colon (Acute 11/17/11) Herpes simplex with unspecified ophthalmic complication (Acute 11/17/11) Lumbago (Acute 10/03/13) Mitral valve regurgitation (Acute 12/23/13) Sciatica (Acute 07/02/12) Serrated adenoma of colon (Acute 08/31/17) Seborrheic keratoses (Acute) Medical History (Updated 10/01/21 @ 16:37 by Sena Herbert NP) Asthma Mitral valve regurgitation F/U with PCP, pt. states he has had no issues with this Sciatica Surgical History Colonoscopy - MAC (08/31/17) Family History Mother , heart disease at age 69. No problems noted. Father , lung cancer at age 59. No problems noted. Social History (Updated 11/28/20 @ 08:53 by Michelle Woods RN) Smoking/Tobacco Use Status: Former Tobacco Use Quit Date: 11/09/79 Smokeless tobacco user: chewing tobacco (quit 11/09/20) Smoking risk assessment performed?: Yes Alcohol Intake: current Alcohol Intake frequency: holidays/special occasions only Drug use: Never Substance use type: does not use Adopted: No Caregiver/Support person: No Household members: spouse Housing: apartment Number of Children: 0 Communication Needs: None Do you need help understanding health information?: Never Pets and animals: No Sexually active: Yes Do you think of yourself as: straight/heterosexual Current gender identity: male What is your relationship status?: How often do you talk on the phone with friends or family?: once per week How often do you get together with friends or relatives?: once per week How often do you attend anabaptist or mandaen services?: decline to answer Do you belong to any clubs or organized social groups?: no Panel score (0-1 are the most socially isolated patients): 1 What type of physical activity do you participate in: none Brit/Hindu: None Special brit needs: No Seatbelt use: always Helmet use: No Drive intox or ride w/intox 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
[2021-10-02 13:44] VITALS: PULSE 61
== END 2021-10-02 13:48 | disposition short-term general hospital (02) | DRG 281 ==
LOC: ER 12:22 → MS 14:00
PROVIDERS: Nurse Practitioner Acute Care; Admitting Provider Family Medicine; Emergency Provider Physician Assistant; PCP Nurse Practitioner; Visit Provider Family Medicine
DX: I21.4 Non-ST elevation (NSTEMI) myocardial infarction (principal); B00.89 Other herpesviral infection; I34.0 Nonrheumatic mitral (valve) insufficiency; M54.40 Lumbago with sciatica, unspecified side; J45.909 Unspecified asthma, uncomplicated; Z20.822 Contact with and (suspected) exposure to COVID-19; R00.1 Bradycardia, unspecified
CPT/HCPCS: 36415; 71275; 80048; 80053; 87635; 93005; 96361; 96365; 96366; 96376; 99291; 83735; 84484; 85025; 85610; 85730; 93010; 99219; 99239; G0378; J3490

== ENCOUNTER 2021-10-10 10:59 | Outpatient (REF) | payer OTHER, SELFPAY ==
[2021-10-10 14:24] LABS: Anion Gap 6.1 mmol/L (3-11); BUN 15 mg/dL (7-18); CO2 29.9 mmol/L (21.0-32.0); CREATININE 1.1 mg/dL (0.70-1.30); Calcium 8.9 mg/dL (8.5-10.1); Chloride 104 mmol/L (98-107); Glucose 88 mg/dL (74-106); Potassium 4.6 mmol/L (3.5-5.1); Sodium 140 mmol/L (136-145)
== END 2021-10-10 11:00 | disposition home or self-care (01) ==
LOC: LBN 10:59
PROVIDERS: PCP Nurse Practitioner; Visit Provider Nurse Practitioner
DX: I21.4 Non-ST elevation (NSTEMI) myocardial infarction (principal)
CPT/HCPCS: 80048

== ENCOUNTER 2021-11-06 13:00 | Outpatient (RCR) | payer OTHER, SELFPAY | END 2021-11-08 23:59 | disposition home or self-care (01) | LOC: CR 13:00 | PROVIDERS: PCP Nurse Practitioner; Visit Provider Family Medicine | DX: Z51.89 Encounter for other specified aftercare (principal); I25.2 Old myocardial infarction; Z95.5 Presence of coronary angioplasty implant and graft | CPT/HCPCS: S9472 ==

== ENCOUNTER 2021-11-07 11:33 | Outpatient (CLI) | payer OTHER, SELFPAY ==
--- NOTE | 2021-11-07 11:30 | RT.EKG_ITS ---
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
== END 2021-11-07 11:34 | disposition home or self-care (01) ==
LOC: DI.CARD 11:34
PROVIDERS: PCP Nurse Practitioner; Visit Provider Internal Medicine Cardiovascular Disease
DX: I21.4 Non-ST elevation (NSTEMI) myocardial infarction (principal)
CPT/HCPCS: 93010

== ENCOUNTER 2021-11-11 14:41 | Outpatient (RCR) | payer BC, SELFPAY | END 2021-12-09 23:59 | disposition home or self-care (01) | LOC: CR 14:41 | PROVIDERS: PCP Nurse Practitioner; Visit Provider Family Medicine | DX: I25.2 Old myocardial infarction (principal); Z95.5 Presence of coronary angioplasty implant and graft | CPT/HCPCS: S9472 ==

== ENCOUNTER 2021-12-17 02:01 | Outpatient (CLI) | payer BC, SELFPAY ==
[2021-12-17 17:49] LABS: ALT 37 U/L (16-63); AST 22 U/L (15-37); Albumin 3.8 g/dL (3.4-5.0); Alkaline Phosphatase 54 U/L (46-116); Anion Gap 7.9 mmol/L (3-11); BUN 17 mg/dL (7-18); Bilirubin, Total 0.6 mg/dL (0.2-1.0); CO2 26.1 mmol/L (21.0-32.0); CREATININE 1.1 mg/dL (0.70-1.30); Calcium 8.6 mg/dL (8.5-10.1); Calculated LDL 50 mg/dL (<100); Chloride 107 mmol/L (98-107); Cholesterol 119 mg/dL (<200); Glucose 82 mg/dL (74-106); HDL Cholesterol 55 mg/dL (40-60); Potassium 4.2 mmol/L (3.5-5.1); Sodium 141 mmol/L (136-145); TSH (W/Ref FT4) 6.68 uIU/mL (0.36-3.74); Total Protein 6.5 g/dL (6.4-8.2); Triglyceride 74 mg/dL (<150)
== END 2021-12-17 02:02 | disposition home or self-care (01) ==
LOC: LBO 02:01
PROVIDERS: PCP Nurse Practitioner; Visit Provider Nurse Practitioner
DX: I25.2 Old myocardial infarction (principal); R79.89 Other specified abnormal findings of blood chemistry
CPT/HCPCS: 36415; 80053; 80061; 84439; 84443

== ENCOUNTER 2022-01-09 11:03 | Outpatient (CLI) | payer BC, SELFPAY ==
--- NOTE | 2022-01-09 10:15 | DI.RAD_ITS ---
Exam(s) XR KNEE LT 3V AP,LAT,VANGIE EXAM: XR KNEE LT 3V AP,LAT,VANGIE CLINICAL HISTORY: injury. TECHNIQUE: 2D digital imaging was performed. COMPARISON: No exams were available for comparison FINDINGS: BONES: No acute fracture is present. No bony destructive lesion is seen. JOINTS: The knee is normally aligned. No joint effusion is seen. Mild periarticular spurring. Minima l medial femoral tibial joint space narrowing. SOFT TISSUE: Normal. IMPRESSION: Mild degenerative changes. DATA REPOSITORY: RADIATION DOSE DELIVERED:
== END 2022-01-09 11:04 | disposition home or self-care (01) ==
LOC: DIORS 11:03
PROVIDERS: PCP Nurse Practitioner; Referring Provider Nurse Practitioner; Visit Provider Physician Assistant Surgical
DX: M25.562 Pain in left knee (principal); M23.8X2 Other internal derangements of left knee; M17.12 Unilateral primary osteoarthritis, left knee
CPT/HCPCS: 73562

== ENCOUNTER 2022-01-22 01:28 | Outpatient (CLI) | payer BC, SELFPAY ==
--- NOTE | 2022-01-22 06:00 | DI.MRI_ITS ---
Exam(s) MR LOWER JOINT LT WO EXAM: MR LOWER JOINT LT WO CLINICAL HISTORY: PAIN,internal derangement lt knee,m23.92 TECHNIQUE: Multiplanar multisequence MRI of the knee was performed. COMPARISON: Plain films of 01/09/2022 reviewed. FINDINGS: EFFUSION: There is a small joint effusion. There is no Obrien cyst in the popliteal fossa. MARROW:There is no evidence of fracture, bone contusion, nor osteochondral defects.. There are no si gnificant osseous lesions. PATELLOFEMORAL COMPARTMENT: The quadriceps tendon is intact. The patellar ligament is intact. Mild thinning of the retropatellar cartilage. No prominent fissures. No osteochondral defects.There is no intraosseous signal to suggest recent patellar dislocation. There are no patellar retinacular tears. CRUCIATE LIGAMENTS: The anterior cruciate ligament is intact.The posterior cruciate ligament is intac t. MEDIAL COMPARTMENT/MEDIAL MENISCUS: There is tear in the posterior horn of the medial meniscus.Both v ertical and oblique components. Also small undersurface tear in the outer most aspect of the posteri or horn. Meniscal root is intact and there is no bucket-handle configuration. No prominent menisco capsular separation. There is also some abnormal signal in the anterior horn of the medial meniscus and mild anterior extrusion of the anterior. There are mild degenerative cartilage changes over the medial condyle, although somewhat more prominent over the inner aspect of the medial condyle. There is no osteochondral defect.. No significant marginal osteophytes. MEDIAL COLLATERAL LIGAMENT: There is a small amount of fluid in the MCL between the deep and superfic ial fibers, this above the joint space. There is no high-grade tear of this structure. LATERAL COMPARTMENT/LATERAL MENISCUS: There is no evidence of lateral meniscal tear.There are no weston dral defects, osteochondral defects, subarticular marrow edema, nor osteophytes evident. ILIOTIBIAL BAND: Intact LATERAL COLLATERAL LIGAMENT COMPLEX: The fibular collateral ligament is intact. The biceps femoris t endon is intact.Popliteus muscle and tendon are intact. IMPRESSION: 1. The main findings here are in the medial compartment where there is tear of the posterior horn the medial meniscus which is predominantly in the outer half and involves the under surface as well as a vertical tear but not associated with bucket-handle configuration and there are no flipped meniscal fragments. 2. Mild-moderate degenerative changes are noted in the cartilage over the medial condyle. No osteoch ondral defects. No significant bone contusion nor degenerative subarticular cysts. No osteophytes. 3. Cruciate and collateral ligaments are intact 4. Small joint effusion. No Obrien cyst. DATA REPOSITORY:
== END 2022-01-22 01:48 ==
LOC: DI 01:28
PROVIDERS: PCP Nurse Practitioner; Visit Provider Student in an Organized Health Care Education/Training Program
DX: S83.212A Bucket-handle tear of medial meniscus, current injury, left knee, initial encounter; M17.12 Unilateral primary osteoarthritis, left knee; M25.462 Effusion, left knee; X58.XXXA Exposure to other specified factors, initial encounter
CPT/HCPCS: 73721

== ENCOUNTER 2022-03-06 10:03 | Outpatient (CLI) | payer BC, SELFPAY | END 2022-03-06 10:04 | disposition home or self-care (01) | LOC: DI.CARD 10:03 | PROVIDERS: PCP Nurse Practitioner; Visit Provider Internal Medicine Cardiovascular Disease | DX: R69 Illness, unspecified (principal) | CPT/HCPCS: 93010 ==

== ENCOUNTER 2022-03-10 01:42 | Outpatient (CLI) | payer BC, SELFPAY ==
[2022-03-11 11:31] LABS: COVID-19 RT-PCR UVMMC Result Negative (Negative)
== END 2022-03-10 01:43 | disposition home or self-care (01) ==
LOC: LBO 01:43
PROVIDERS: PCP Nurse Practitioner; Visit Provider Student in an Organized Health Care Education/Training Program
DX: Z20.822 Contact with and (suspected) exposure to COVID-19 (principal); Z01.818 Encounter for other preprocedural examination
CPT/HCPCS: 87635; U0003

== ENCOUNTER 2022-03-12 11:21 | Day surgery (SDC) | payer BC, SELFPAY ==
[2022-03-12] VITALS (7 sets, daily range): BP systolic 121–154; BP diastolic 60–81; PULSE 54–61; RESP 15–17; TEMP 36.1–36.5; O2SAT 96–98; BMI 34.6
--- NOTE | 2022-03-12 11:50 | W.PM.DSUDISC ---
Discharge Plan Disposition Patient Disposition: HOME Condition: Good Discharge Details Reason For Visit: Left Knee Medial Meniscus Tear Attending Provider: Kishore Mcqueen Primary Care Provider: Karen Manuel Home Meds and New Rx's Prescriptions: New hydrocodone-acetaminophen 5-325 mg tablet 1 tab PO Q6H PRN (Reason: pain) Qty: 5 0RF acetaminophen 500 mg tablet 500 mg PO Q6H PRN PRN (Reason: pain) Qty: 60 3RF Continued beclomethasone dipropionate 80 mcg/actuation HFA aerosol breath activated 1 inh IH BID Qty: 1 12RF albuterol sulfate 90 mcg/actuation aerosol powdr breath activated 2 inh inhalation Q4H PRN (Reason: shortness of breath or wheezing) Qty: 1 12RF Serevent Diskus 50 mcg/dose blister with device 2 inh Inhalation BID Qty: 3 3RF atorvastatin 40 mg tablet 80 mg PO QPM Qty: 180 3RF clopidogrel 75 mg tablet 75 mg PO DAILY Qty: 90 3RF metoprolol succinate 25 mg tablet extended release 24 hr 12.5 mg PO DAILY Qty: 45 3RF Rx Instructions: per [facility] [place] d/c s/p NSTEMI, hold if pr >50 and call [facility] [place] [place] Cardiology aspirin 81 mg tablet,delayed release (DR/EC) 81 mg PO DAILY Qty: 90 3RF nitroglycerin 0.4 mg tablet, sublingual 0.4 mg sublingual Q5-15M PRN0RF Rx Instructions: do not exceed 3 doses per episode ibuprofen 800 mg tablet 800 mg PO Q8H PRN (Reason: pain) Qty: 90 2RF Discharge Instructions Stand Alone Forms: [facility] Referrals: Kishore Mcqueen MD [ [facility] STAFF PHYSICIAN] - Equipment/Supplies: Partial Weight Bearing Crutches Activity:: Activity as Tolerated Remove Dressings/Wound Care:: 72 hours Shower/Bathe:: 72 hours Diet:: As Tolerated Discharge Orders Discharge Orders: Discharge Order (Routine); Ordered 03/12/22 Ordered By: Cherrie Rascon
[2022-03-12] MEDS: Lactated Ringers 1,000 ML 80 ML IV (12:08)
--- NOTE | 2022-03-12 13:11 | W.ANESPRE ---
General Info Date of Service Date Performed: 03/12/22 Height: 5 ft 10 in Weight: 109.5 kg Body Mass Index (BMI): 34.6 Surgical Procedure: Operation Date: 03/12/22 14:55 Proposed Procedure Side Surgeon p Knee Arthroscopy partial medial menisectomy Left Kishore Mcqueen MD Meds Allergies and Home Medications Allergies Allergy/AdvReac Type Severity Reaction Status Date / Time bupropion AdvReac Unknown jittery Verified 03/12/22 11:39 cats Allergy Mild Other (See Uncoded 03/12/22 11:39 Comment) Home Medication Medication Instructions Recorded nitroglycerin 0.4 mg sublingual 0.4 mg SUBLINGUAL Q5-15M PRN 10/08/21 tablet aspirin 81 mg tablet,delayed 81 mg PO DAILY #90 tab 10/10/21 release atorvastatin 40 mg tablet 80 mg PO QPM #180 tab 10/10/21 clopidogrel 75 mg tablet 75 mg PO DAILY #90 tab 10/10/21 metoprolol succinate 25 mg 12.5 mg PO DAILY #45 tab 10/10/21 tablet,extended release 24 hr albuterol sulfate 90 mcg/actuation 2 inh INHALATION Q4H PRN #1 ea 12/10/21 breath activated powder inhaler beclomethasone dipropionate 80 1 inh IH BID #1 unit 12/10/21 mcg/actuation HFA breath activated aerosol ibuprofen 800 mg tablet 800 mg PO Q8H PRN #90 tab 12/10/21 salmeterol 50 mcg/dose blister 2 inh INHALATION BID #3 disk 12/10/21 powder for inhalation (Serevent Diskus) Current Visit Medications: Current Medications Generic Name Dose Route Start Last Admin Trade Name Freq PRN Reason Stop Dose Admin Acetaminophen 650 mg 03/12/22 11:29 Acetaminophen 325 Mg Tab PO Q4H PRN PRN Hydrocodone Bitart/Acetaminophen 0 tab 03/12/22 11:29 Hydrocodone 5/Acetaminophen 325 Tab PO Q3H PRN PRN Pain Ringer's Solution 1,000 mls @ 80 mls/hr 03/12/22 06:00 03/12/22 12:08 IV 04/10/22 23:59 80 mls/hr INFUSION EVIE Administration Cefazolin Sodium/Dextrose 2 gm in 50 mls @ 100 mls/hr 03/12/22 06:00 Ancef Duplex IVPB 04/10/22 23:59 PREOP EVIE IV Miscellaneous Supplies 1 each 03/12/22 06:00 Iv Access IV 04/10/22 23:59 DIRECTED EVIE Sodium Chloride 0 ml 03/12/22 06:00 Normal Saline Flush 10 Ml Syr IV 04/10/22 23:59 PRN PRN Sodium Chloride 0 ml 03/12/22 06:00 Normal Saline 10 Ml Vial IJ 04/10/22 23:59 DIRECTED PRN Sterile Water 0 ml 03/12/22 06:00 Water,Injection,Sterile 10 Ml Vial IJ 04/10/22 23:59 DIRECTED PRN PFSH Active Problems Active Problems: Problem Status Onset Code Tear of medial meniscus of left knee S83.242A Internal derangement of left knee M23.92 Coronary artery disease I25.10 Discharge planning issues Z02.9 NSTEMI (non-ST elevated myocardial infarction) 10/03/21 I21.4 Seborrhea oleosa L21.8 Dry skin L85.3 Routine medical exam Z00.00 Abnormal TSH R79.89 Routine general medical examination at a health care facility Z00.00 Normal colonoscopy Extrinsic asthma, unspecified 11/17/11 J45.909 Benign neoplasm of colon 11/17/11 D12.6 Herpes simplex with unspecified ophthalmic complication 11/17/11 B00.50 Lumbago 10/03/13 M54.5 Mitral valve regurgitation 12/23/13 I34.0 Sciatica 07/02/12 M54.30 Serrated adenoma of colon 08/31/17 D12.6 Seborrheic keratoses L82.1 Medical History Medical History Asthma Mitral valve regurgitation F/U with PCP, pt. states he has had no issues with this Sciatica Surgical History Surgical History Colonoscopy - MAC (08/31/17) H/O heart artery stent (~10/02/21) Tobacco Smoking/Tobacco Use Status: Former Tobacco Use Smokeless tobacco user: chewing tobacco (quit 11/09/20) Passive smoking exposure: No Second hand exposure: No Alcohol Alcohol Intake: current Alcohol intake frequency: holidays/special occasions only Substance Use Substance use: Never Substance use type: does not use Vital Signs and Lab Results Vital Signs Most Recent Vital Signs in EMR: Most Recent Vital Signs Temp Pulse Resp BP Pulse Ox 36.5 C 61 17 154/81 H 98 03/12/22 11:44 03/12/22 11:44 03/12/22 11:44 03/12/22 11:44 03/12/22 11:44 Lab Results Blood Type / Crossmatch: No Data to Display Complete Blood Count: No Data to Display Complete Metabolic Panel: No Data to Display Liver Function Panel: No Data to Display Coagulation Panel: No Data to Display Cardiac Panel: No Data to Display Arterial Blood Gas: No Data to Display Venous Blood Gas: No Data to Display Pancreas Panel: No Data to Display Thyroid Panel: No Data to Display Infectious Disease: Coronavirus (COVID-19)(PCR) Negative (Negative) 03/10/22 08:27 03/10/22 Blood Cultures: No Data to Display Toxicology Panel: No Data to Display Imaging and Studies Imaging and Studies Study information below may be from another EMR and interpreted by another provider. Please see original notes in EMR for more complete details. 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 Estimated ejection fraction is 60 to 65%. Wall motion is normal Normal right ventricular size and systolic function Both atria are normal in size Trileaflet aortic valve without stenosis or regurgitation Normal mitral valve with mild regurgitation Normal tricuspid valve with trace regurgitation. Estimated right ventricular systolic pressure is normal at 26 mmHg Cardiac Catheterization Summary: 10/03/20[place] [facility] [place] LAD disease with 2 stents placed. Anesthesia Assessment and Plan Anesthesia History Personal History: No History of Anesthesia Complications Family History: No Family History of Anesthesia Complications Exercise Tolerance Exercise Tolerance: Metabolic Equivalents>4 Pertinent Negatives Pertinent Negatives: No Symptoms of GERD Cardiac & Pulmonary Exam Cardiac Exam: Normal S1/S2 Heart Sounds Pulmonary Exam: Clear Bilateral Breath Sounds Implantable Cardiac Device Does patient have a Pacemaker or an ICD?: No Airway Exam Known Difficult Airway: No Mallampati Class: 1 Mouth Opening: Normal (> 3cm) Thyromental Distance: Greater than 3 cm Neck Range of Motion: Full ROM Neck Circumference: Normal Teeth Condition: Normal Dentition ASA Classification ASA Score: ASA 3 Emergency Case?: No NPO Status NPO Status: NPO Clears >2 hours, Solids >8 hours Anesthesia Plan Resuscitation Status: Full Code Anesthesia Technique: General Anesthesia Airway Planned: LMA Monitors Used: Standard Monitors
[2022-03-12] MEDS: ceFAZolin 2 GM/50 ML BAG IVPB (14:29)
[2022-03-12] MEDS: Bupivacaine 0.5% Pres-Free 30 ML VIAL (14:53)
--- NOTE | 2022-03-12 15:24 | ROE_ITS ---
Date of service: 03/12/22 Time of Service: 15:05 Operative Note Operative Note DATE OF PROCEDURE: 03/12/22 PRE-OP DIAGNOSIS: Right Knee Medial Meniscus Tear POST-OP DIAGNOSIS: same PROCEDURE: Right Knee Arthroscopic Partial Medial Menisectomy, Medial Chondroplasty SURGEON: Kishore Mcqueen Refer to Anesthesia Record ESTIMATED BLOOD LOSS: 0 PATHOLOGY: none sent COMPLICATIONS: None Patient was transported to: PACU Patient's condition: stable Indications: I have seen Ed in clinic for symptoms of a meniscus tear. This was confirmed based on MRI and exam findings. Nonoperative measures were exhausted but disability and pain persisted. I discussed knee arthroscopy with meniscal intervention with the patient. I reviewed the risks of the procedure to include, but not limited to, bleeding, infection, pain, stiffness, damage to nerves or vessels, recurrence, blood clot. Despite these risks, the patient elected to proceed. 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 The consent was reviewed with the patient and signed. The history and physical was updated. All questions were answered. He was taken back to the operating room. The patient was placed into the supine position on the operating room table. All bony prominences were well padded. Prophylactic antibiotics in the form of Cefazolin were administered. The left leg was then prepped with Chloraprep and draped in a standard fashion with stockinette and extremity drape. A timeout to confirm correct identity, side and site, procedure, allergies, anesthesia, and medical concerns was performed. The leg was placed into a pneumatic leg bell, [id number]. A standard lateral portal was made at the lateral border of the patella tendon in line with the inferior pole of the patella, soft spot. The skin and deep tissue was incised sharply and the blunt trochar was inserted atraumatically. A diagnostic arthroscopy was performed and the findings are listed above. The suprapatellar pouch had mild inflammatory changes. The patellofemoral articulation showed Grade II chondromalacia as well as good tracking. The lateral gutter had no loose bodies and the medial gutter had no loose bodies. The knee was brought into some valgus stress in extension to open the medial compartment. A medial portal was made, localized by a spinal needle. The portal was created with an #11 blade through skin and capsule under direct visualization avoiding any m eniscal injury. A probe was then inserted into the medial compartment. The medial compartment was fully inspected. The chondral surface of the tibia showed mild, Grade I chondromalacia, and the surface of the femur showed Grade I chondromalacia with an area of focal chondromalacia of the posterolateral aspect of the medial femur with a loose chondral flap. The medial meniscus had a complex tear with a radial component at the posterior horn and some horizontal tearing extending to the root and some generalized degeneration in this region. After evaluation, the meniscus was debrided down to a stable base using a series of biters and arthroscopic mercedes. It was probed afterwards to confirm that the tear had been removed and the meniscus was stable. Cartilage surfaces were debrided of any flaps, leaving any intact fibers. The notch was then inspected which showed an intact ACL and an inflammed PCL. The leg was then brought into a figure of 4 position. The lateral compartment was fully inspected with the arthroscope and a probe. The chondral surface of the lateral femur showed no significant chondromalacia. The chondral surface of the lateral tibia showed no significant chondromalacia. The lateral meniscus had no meniscal tear. The arthroscope was brought back into the suprapatellar pouch and the leg was in full extension. The knee was thoroughly irrigated with the arthroscopic fluid on high flow and pressure. Inflow was stopped and excess fluid was removed. The wounds were closed with 4-0 Nylon. They were dressed with Xeroform, 4x4 gauze, ABD pad, Kerlix and an ONEL wrap. A cryo-cuff was applied. The patient tolerated the procedure well and was returned to the Same Day Surgery area in a stable condition suffering no known complication.
--- NOTE | 2022-03-12 15:38 | W.ANESPOSTOP ---
Postoperative Evaluation Date, Time and Location Date Performed: 03/12/22 Time Performed: 15:34 Patient Location: PACU Vital Signs Most Recent Imported Vital Signs: Most Recent Vital Signs Temp Pulse Resp BP Pulse Ox 36.1 C L 57 L 17 123/65 98 03/12/22 15:23 03/12/22 15:23 03/12/22 15:23 03/12/22 15:23 03/12/22 15:23 Pain Score Most Recent Pain Score: Most Recent Pain Score Pain Level 0 03/12/22 15:23 Assessment Mental Status: Awake (Alert & Oriented to Patient Baseline) Airway and Respiratory Function: Patent airway with normal (patient baseline) respiratory exam Cardiovascular Function: Hemodynamically Stable Hydration Status: Adequately Hydrated Nausea & Vomiting: No Nausea or Vomiting Pain: Pt. Denies Any Pain Peripheral Nerve Block: Patient did not receive a nerve block
== END 2022-03-12 16:55 | disposition home or self-care (01) ==
PROVIDERS: PCP Nurse Practitioner; Visit Provider Student in an Organized Health Care Education/Training Program
PROC: (CPT 29870; principal; 2022-03-12 14:45)
DX: M23.232 Derangement of other medial meniscus due to old tear or injury, left knee (principal); M94.262 Chondromalacia, left knee; I25.2 Old myocardial infarction; I34.0 Nonrheumatic mitral (valve) insufficiency; J45.909 Unspecified asthma, uncomplicated
CPT/HCPCS: 29881; J0690; J2405

== ENCOUNTER 2023-01-30 02:31 | Outpatient (CLI) | payer BC, SELFPAY ==
[2023-01-30 07:48] LABS: ALT 47 U/L (16-63); AST 25 U/L (15-37); Albumin 3.7 g/dL (3.4-5.0); Alkaline Phosphatase 72 U/L (46-116); Anion Gap 5.5 mmol/L (3-11); BUN 17 mg/dL (7-18); Bilirubin, Total 0.7 mg/dL (0.2-1.0); CO2 27.5 mmol/L (21.0-32.0); CREATININE 1.2 mg/dL (0.70-1.30); Calcium 8.8 mg/dL (8.5-10.1); Calculated LDL 55 mg/dL (<100); Chloride 105 mmol/L (98-107); Cholesterol 127 mg/dL (<200); Estimated GFR 68.38 (mL/min/1.73m2); Glucose 105 mg/dL (74-106); HDL Cholesterol 66 mg/dL (40-60); Potassium 4.2 mmol/L (3.5-5.1); Sodium 138 mmol/L (136-145); TSH (W/Ref FT4) 3.87 uIU/mL (0.36-3.74); Total Protein 6.7 g/dL (6.4-8.2); Triglyceride 33 mg/dL (<150)
[2023-01-30 09:29] LABS: Hemoglobin A1C 5.7 % (<5.7)
[2023-01-30 09:31] LABS: FREE T4 0.84 ng/dL (0.76-1.46)
[2023-01-30 19:43] LABS: PSA, Screening 0.2 ng/mL (<=4.5)
== END 2023-01-30 02:32 | disposition home or self-care (01) ==
LOC: LBO 02:31
PROVIDERS: PCP Nurse Practitioner; Referring Provider Nurse Practitioner; Visit Provider Nurse Practitioner
DX: Z00.00 Encounter for general adult medical examination without abnormal findings (principal); E78.5 Hyperlipidemia, unspecified; I25.2 Old myocardial infarction; R79.89 Other specified abnormal findings of blood chemistry; E66.9 Obesity, unspecified; R39.198 Other difficulties with micturition; Z12.5 Encounter for screening for malignant neoplasm of prostate
CPT/HCPCS: 36415; 80053; 80061; 84153; 83036; 84439; 84443

== ENCOUNTER 2023-06-29 08:27 | Outpatient (CLI) | payer BC, SELFPAY ==
--- NOTE | 2023-06-29 08:15 | RT.EKG_ITS ---
APPROVED REPORT Exam: Resting ECG Reason for Exam: CAD Patient Location: O HR:55 bpm ECG Measurements Heart Rate 55 AXIS MD 194 P 48 QRSd 91 QRS 17 QT 429 T 5 QTc 411 Conclusion Sinus rhythm...normal P axis, V-rate 50- 99 Normal Electrocardiogram
== END 2023-06-29 08:28 | disposition home or self-care (01) ==
LOC: DI.CARD 08:29
PROVIDERS: PCP Nurse Practitioner; Visit Provider Internal Medicine Cardiovascular Disease
DX: I25.10 Atherosclerotic heart disease of native coronary artery without angina pectoris (principal)
CPT/HCPCS: 93010

== ENCOUNTER 2024-04-01 02:30 | Outpatient (CLI) | payer BC, SELFPAY ==
[2024-04-01 07:20] LABS: Abs Immature Grans 0.01 10^3/uL (0.0-0.06); Absolute Basophil Count 0.05 10^3/uL (0.0-0.2); Absolute Eosinophil Count 0.34 10^3/uL (0.0-0.7); Absolute Lymphocyte Count 2.19 10^3/uL (1.2-3.4); Absolute Monocyte Count 0.77 10^3/uL (0.1-0.8); Absolute Neutrophil Count 2.68 10^3/uL (1.2-6.7); Basophils % 0.8 %; Eosinophils % 5.6 %; HCT 43.6 % (40.0-50.0); HGB 14.1 g/dL (13.5-17.5); Immature Grans % 0.2 %; Lymphocytes % 36.3 %; MCH 30.5 pg (27.0-33.0); MCHC 32.3 % (32.0-36.0); MCV 94 fL (80-95); MPV 11.1 fL (8.0-11.0); Monocytes % 12.7 %; Neutrophils % 44.4 %; Platelet Count 166 10^3/uL (130-400); RBC 4.62 10^6/uL (4.36-5.78); RDW 12.9 % (11.8-14.1); RDW-SD 44.4 fL; WBC 6.04 10^3/uL (4.4-10.8)
[2024-04-01 07:46] LABS: Hemoglobin A1C 5.7 % (<5.7)
[2024-04-01 08:05] LABS: ALT 46 U/L (16-63); AST 27 U/L (15-37); Albumin 3.8 g/dL (3.4-5.0); Alkaline Phosphatase 68 U/L (46-116); Anion Gap 5.5 mmol/L (3-11); BUN 18 mg/dL (7-18); Bilirubin, Total 1.1 mg/dL (0.2-1.0); CO2 30.5 mmol/L (21.0-32.0); CREATININE 1.3 mg/dL (0.70-1.30); Calcium 8.9 mg/dL (8.5-10.1); Calculated LDL 40 mg/dL (<100); Chloride 108 mmol/L (98-107); Cholesterol 105 mg/dL (<200); Estimated GFR 61.73 (mL/min/1.73m2); Glucose 100 mg/dL (74-106); HDL Cholesterol 49 mg/dL (40-60); Potassium 4.3 mmol/L (3.5-5.1); Sodium 144 mmol/L (136-145); Total Protein 6.7 g/dL (6.4-8.2); Triglyceride 83 mg/dL (<150)
[2024-04-01 08:31] LABS: FREE T4 0.81 ng/dL (0.76-1.46)
== END 2024-04-01 02:31 | disposition home or self-care (01) ==
LOC: LBO 02:30
PROVIDERS: PCP Nurse Practitioner; Referring Provider Nurse Practitioner; Visit Provider Nurse Practitioner
DX: Z13.228 Encounter for screening for other metabolic disorders; Z13.220 Encounter for screening for lipoid disorders; Z13.0 Encounter for screening for diseases of the blood and blood-forming organs and certain disorders involving the immune mechanism; Z13.1 Encounter for screening for diabetes mellitus
CPT/HCPCS: 36415; 80053; 80061; 83036; 84439; 84443; 85025